=== PATIENT | female | born 1955 | race Caucasian/White ===

== ENCOUNTER 2017-06-06 09:57 | Emergency (ER) | payer OTHER ==
[~2017-06-06] VITALS: Ht 162.6 cm; Wt 80.3 kg
[2017-06-06 10:03] VITALS: Ht 162.6 cm; Wt 80.3 kg
[2017-06-06 10:41] LABS: BASOPHIL % 0.7 % (0-2); PLATELET COUNT 257 x10^3mcL (130-400); RED CELL DISTRIBUTION WIDTH 13.3 % (11.5-14.5)
[2017-06-06 10:43] LABS: microscopic required? NO
[2017-06-06 10:48] LABS: CALCIUM 9.3 mg/dL (8.5-10.1); CARBON DIOXIDE 28.9 mmol/L (21-32); CHLORIDE SERUM 103 mmol/L (98-107); CREATININE SERUM 0.8 mg/dL (0.6-1.0); GFR1 > 60 mL/min; GLUCOSE SERUM 96 mg/dL (74-106); POTASSIUM SERUM 3.8 mmol/L (3.5-5.1); SODIUM SERUM 141 mmol/L (136-145)
[2017-06-06 10:52] LABS: ALBUMIN 4.3 g/dL (3.4-5.0); ALKALINE PHOSPHATASE 73 U/L (46-116); ALT/SGPT 47 U/L (14-59); AST/SGOT 30 U/L (15-37); LIPASE 169 IU/L (73-393); TOTAL PROTEIN, SERUM 8.2 g/dL (6.4-8.2)
[2017-06-06 10:53] LABS: urine erythrocyte NEGATIVE (NEGATIVE)
[2017-06-06 12:23] VITALS: BP 124/74
== END 2017-06-06 12:23 | disposition home or self-care (01) ==
LOC: ED 09:57
PROVIDERS: Emergency Medicine
DX: M54.9 Dorsalgia, unspecified (principal); R39.15 Urgency of urination; Z88.5 Allergy status to narcotic agent
CPT/HCPCS: J1885; J3010; J7030; Q0092